=== PATIENT | female | born 1990 | race Caucasian/White ===

== ENCOUNTER 2018-10-12 21:17 | Emergency (ER) | payer SELFPAY ==
[~2018-10-12] VITALS: Ht 170.2 cm; Wt 104.3 kg
[2018-10-12 21:58] VITALS: BP 179/95
--- NOTE | 2018-10-12 23:13 | PHYS DOC ---
Past Medical History Past Medical History: Anxiety, Depression Additional Past Medical Histor: MURMUR (DENISHA MCNULTY RETAIL CUSTOMER SERVICE REPRESENTATIVE) Past Surgical History: Other Additional Past Surgical Histo: TOOTH EXTRACTION (DENISHA MCNULTY RETAIL CUSTOMER SERVICE REPRESENTATIVE) Additional Information: PT STATES SHE VAPES Alcohol Use: None Drug Use: None (DENISHA MCNULTY RETAIL CUSTOMER SERVICE REPRESENTATIVE) Adult General Chief Complaint Chief Complaint: SORE THROAT HPI HPI Patient is a 27 year old female who presents with sore throat for the last 4 days. Patient denies fever. Patient states it's hard to eat solid food because his her tonsils are so swollen. Patient states she has a history of strep since she was a small child but they have never taken her tonsils out. Patient rates her throat pain an 8 out of 10. (DENISHA MCNULTY RETAIL CUSTOMER SERVICE REPRESENTATIVE) Review of Systems Review of Systems Constitutional: Denies fever or chills [] HENT: Denies nasal congestion or sore throat. Throat pain. [] Respiratory: Denies cough or shortness of breath [] Neurologic: Denies headache, focal weakness or sensory changes [] All other systems were reviewed and found to be within normal limits, except as documented in this note. (DENISHA MCNULTY RETAIL CUSTOMER SERVICE REPRESENTATIVE) Allergies Allergies Allergies Coded Allergies Type Severity Reaction Last Updated Verified No Known Drug Allergies 10/12/18 No (CARMITA VINCENT DO) Physical Exam Physical Exam Constitutional: Well developed, well nourished, no acute distress, non-toxic appearance. [] HENT: Normocephalic, atraumatic, bilateral external ears normal, oropharynx moist, no oral exudates, nose normal. Throat red. Tonsils 2+ swelling. No exudates.[] Eyes: PERRLA, EOMI, conjunctiva normal, no discharge. [] Neck: Normal range of motion, no tenderness, supple, no stridor. [] Cardiovascular:Heart rate regular rhythm, no murmur [] Lungs & Thorax: Bilateral breath sounds clear to auscultation [] Skin: Warm, dry, no erythema, no rash. [] Neurologic: Alert and oriented X 3, normal motor function, normal sensory function, no focal deficits noted. [] (DENISHA MCNULTY RETAIL CUSTOMER SERVICE REPRESENTATIVE) Current Patient Data Vital Signs Vital Signs Date Time Temp Pulse Resp B/P (MAP) Pulse Ox O2 Delivery O2 Flow Rate FiO2 10/12/18 21:58 98.2 101 16 179/95 (123) 98 Room Air 98.2 (CARMITA VINCENT DO) Lab Values Laboratory Tests Test 10/12/18 22:41 Group A Streptococcus Rapid Negative (NEGATIVE) Microbiology 10/12/18 Throat Culture - Final, Complete 10/12/18 - Final, Complete 10/12/18 - Final, Complete (CARMITA VINCENT DO) Lab Values Laboratory Tests Test 10/12/18 22:41 Group A Streptococcus Rapid Negative (NEGATIVE) Microbiology 10/12/18 Throat Culture - Preliminary, Resulted 10/12/18 - Preliminary, Resulted (DENISHA MCNULTY APRN) EKG EKG [] (DENISHA MCNULTY APRN) Radiology/Procedures Radiology/Procedures [] (DENISHA MCNULTY APRN) Course & Med Decision Making Course & Med Decision Making Patient is a 27 year old female who presents with sore throat for the last 4 days. Patient denies fever. Patient states it's hard to eat solid food because his her tonsils are so swollen. Patient states she has a history of strep since she was a small child but they have never taken her tonsils out. Patient rates her throat pain an 8 out of 10. Speaks in full clear sentences. Vital signs within normal limits. Patient has not taken any Tylenol or ibuprofen today. Patient denies any nausea, vomiting, abdominal pain, shortness of air, chest pain, dizziness, headache, nasal congestion, cough, numbness or tingling, ear pain. No lymph nodes are palpable. Her throat is nontender upon palpation of the neck. There is no swelling of the neck seen. Tympanic membranes are pearly white. Throat is reddened and tonsils are 2+ without exudates. Rapid strep is negative. Lungs are clear to auscultation all lobes. Alert and oriented. Walks with a gait. Patient is given a prescription for Medrol Dosepak prescription for Augmentin. If in 48 hours patient is not feeling better after being on the Medrol Dosepak she is to start taking Augmentin. Patient to follow-up with her primary care provider or return to the emergency room. I have consulted with Dr. Vincent in this patient. Dr. Vincent agrees to this care plan. (DENISHA MCNULTY APRN) Dragon Disclaimer Dragon Disclaimer This electronic medical record was generated, in whole or in part, using a voice recognition dictation system. (DENISHA MCNULTY APRN) Departure Departure Impression: Primary Impression: Acute tonsillitis Disposition: HOME, SELF-CARE Condition: STABLE Referrals: NO PCP (PCP) Patient Instructions: Tonsillitis Additional Instructions: Hold antibiotics for 48 hours. If symptoms worsen or for fever > 100.3 F after 48 hours then start antibiotics as prescribed. Follow up with primary care physician. Take medications as prescribed. Scripts Methylprednisolone (MEDROL) 4 Mg Tab.ds.pk 1 PKG PO UD, #1 PKG Prov: DENISHA MCNULTY APRN 10/12/18 Amoxicillin/Potassium Clav (AUGMENTIN 875-125 TABLET) 1 Each Tablet 1 TAB PO BID, #20 TAB Prov: DENISHA MCNULTY APRN 10/12/18 Attending Signature Attending Signature I have reviewed the PA/SENIOR IT ASSISTANT's note and plan of care. I was available for consultat ion as needed during the patient's visit in the emergency department. I agree with the clinical impression, plan, and disposition. (CARMITA VINCENT DO) Problem Qualifiers Primary Impression: Acute tonsillitis Pharyngitis/tonsillitis etiology: unspecified etiology Qualified Codes: J03.90 - Acute tonsillitis, unspecified DENISHA MCNULTY APRN Oct 12, 2018 23:13 CARMITA VINCENT DO Oct 12, 2018 23:19
[2018-10-12] MEDS ORDERED: METH4TAB2 PO (23:21)
[2018-10-12] MEDS ORDERED: AMOX1TAB61 PO (23:21)
== END 2018-10-12 23:43 | disposition home or self-care (01) ==
LOC: ER 21:17
DX: J03.90 Acute tonsillitis, unspecified (principal); F17.200 Nicotine dependence, unspecified, uncomplicated
CPT/HCPCS: 87070; 87880; 99283

== ENCOUNTER 2018-10-20 15:52 | Emergency (ER) | payer SELFPAY ==
[~2018-10-20] VITALS: Ht 170.2 cm; Wt 113.4 kg
[~2018-10-20 15:52] MED LIST: AMOX1TAB61 PO; METH4TAB2 PO
[2018-10-20] MEDS ORDERED: DEXAMETHASONE 4 MG TABLET PO STA (16:02)
--- NOTE | 2018-10-20 16:11 | PHYS DOC ---
Past Medical History Past Medical History: Anxiety, Depression Additional Past Medical Histor: MURMUR Past Surgical History: Other Additional Past Surgical Histo: TOOTH EXTRACTION Alcohol Use: None Drug Use: None Adult General Chief Complaint Chief Complaint: DENTAL PROBLEM HPI HPI Patient is a 27 year old female that presents with throat pain that has progressed since she was seen here on October 12. The patient was originally given steroids and told to take Augmentin if it did not get better. The patient states she started taking Augmentin on Tuesday and states that she's been developing what seems like tooth pain in the right upper section of her mouth. She states her throat is been progressively getting worse, and that her voice seems muffled. He is also unable to fully open her mouth. Rates her pain as 5 out of 10 in severity and sharp. Review of Systems Review of Systems Constitutional: Denies fever or chills [] Eyes: Denies change in visual acuity, redness, or eye pain [] HENT: Reports sore throat, and right sided facial swelling. Also report ache ne ar upper right side of mouth. Respiratory: Denies cough or shortness of breath [] Cardiovascular: No additional information not addressed in HPI [] GI: Denies abdominal pain, nausea, vomiting, bloody stools or diarrhea [] : Denies dysuria or hematuria [] Musculoskeletal: Denies back pain or joint pain [] Integument: Denies rash or skin lesions [] Neurologic: Denies headache, focal weakness or sensory changes [] Endocrine: Denies polyuria or polydipsia [] Complete systems were reviewed and found to be within normal limits, except as documented in this note. Current Medications Current Medications Current Medications Medications (Trade) Dose Ordered Sig/Chelly Start Time Stop Time Status Last Admin Dose Admin Clindamycin Phosphate 50 ml @ 100 mls/hr 1X ONCE 10/20/18 18:00 10/20/18 18:29 DC 10/20/18 18:01 100 MLS/HR Dexamethasone (Decadron) 10 mg 1X STAT 10/20/18 16:02 10/20/18 16:09 DC 10/20/18 16:45 10 MG Info (CONTRAST GIVEN -- Rx MONITORING) 1 each PRN DAILY PRN 10/20/18 17:15 10/22/18 17:14 Iohexol (Omnipaque 300 Mg/ml) 70 ml 1X ONCE 10/20/18 17:15 10/20/18 17:16 DC 10/20/18 17:16 70 ML Ketorolac Tromethamine (Toradol 15mg Vial) 10 mg 1X STAT 10/20/18 17:50 10/20/18 17:53 DC 10/20/18 18:01 10 MG Morphine Sulfate (Morphine Sulfate) 2 mg 1X ONCE 10/20/18 16:15 10/20/18 16:16 DC 10/20/18 16:45 2 MG Sodium Chloride 1,000 ml @ 1,000 mls/hr 1X ONCE 10/20/18 16:15 10/20/18 17:14 DC 10/20/18 16:45 1,000 MLS/HR Allergies Allergies Allergies Coded Allergies Type Severity Reaction Last Updated Verified No Known Drug Allergies 10/12/18 No Physical Exam Physical Exam Constitutional: Well developed, well nourished, no acute distress, non-toxic appearance. [] HENT: Normocephalic, atraumatic, bilateral external ears normal, oropharynx moist, right tonsils is 3+/4, unable to completely visualize, cavity in tooth # 2 nose normal. [] Eyes: PERRLA, EOMI, conjunctiva normal, no discharge. [] Neck: Normal range of motion, no tenderness, supple, no stridor. [] Cardiovascular:Heart rate regular rhythm, no murmur [] Lungs & Thorax: Bilateral breath sounds clear to auscultation [] Abdomen: Bowel sounds normal, soft, no tenderness, no masses, no pulsatile masses. [] Skin: Warm, dry, no erythema, no rash. [] Back: No tenderness, no CVA tenderness. [] Extremities: No tenderness, no cyanosis, no clubbing, ROM intact, no edema. [] Neurologic: Alert and oriented X 3, normal motor function, normal sensory function, no focal deficits noted. [] Psychologic: Affect normal, judgement normal, mood normal. [] Current Patient Data Vital Signs Vital Signs Date Time Temp Pulse Resp B/P (MAP) Pulse Ox O2 Delivery O2 Flow Rate FiO2 10/20/18 16:45 Room Air 10/20/18 16:09 99.1 99 16 186/91 (122) 96 99.1 Lab Values Laboratory Tests Test 10/20/18 16:37 10/20/18 16:42 POC Urine HCG, Qualitative Hcg negative (Negative) White Blood Count 16.2 x10^3/uL (4.0-11.0) H Red Blood Count 4.80 x10^6/uL (3.50-5.40) Hemoglobin 13.6 g/dL (12.0-15.5) Hematocrit 40.9 % (36.0-47.0) Mean Corpuscular Volume 85 fL (79-100) Mean Corpuscular Hemoglobin 28 pg (25-35) Mean Corpuscular Hemoglobin Concent 33 g/dL (31-37) Red Cell Distribution Width 13.0 % (11.5-14.5) Platelet Count 426 x10^3/uL (140-400) H Neutrophils (%) (Auto) 73 % (31-73) Lymphocytes (%) (Auto) 19 % (24-48) L Monocytes (%) (Auto) 6 % (0-9) Eosinophils (%) (Auto) 2 % (0-3) Basophils (%) (Auto) 1 % (0-3) Neutrophils # (Auto) 11.8 x10^3/uL (1.8-7.7) H Lymphocytes # (Auto) 3.0 x10^3/uL (1.0-4.8) Monocytes # (Auto) 1.0 x10^3/uL (0.0-1.1) Eosinophils # (Auto) 0.3 x10^3/uL (0.0-0.7) Basophils # (Auto) 0.1 x10^3/uL (0.0-0.2) Sodium Level 142 mmol/L (136-145) Potassium Level 3.4 mmol/L (3.5-5.1) L Chloride Level 102 mmol/L (98-107) Carbon Dioxide Level 28 mmol/L (21-32) Anion Gap 12 (6-14) Blood Urea Nitrogen 9 mg/dL (7-20) Creatinine 0.9 mg/dL (0.6-1.0) Estimated GFR (Cockcroft-Gault) 74.0 BUN/Creatinine Ratio 10 (6-20) Glucose Level 98 mg/dL (70-99) Calcium Level 9.4 mg/dL (8.5-10.1) Total Bilirubin 0.8 mg/dL (0.2-1.0) Aspartate Amino Transferase (AST) 7 U/L (15-37) L Alanine Aminotransferase (ALT) 13 U/L (14-59) L Alkaline Phosphatase 82 U/L (46-116) Total Protein 8.7 g/dL (6.4-8.2) H Albumin 3.6 g/dL (3.4-5.0) Albumin/Globulin Ratio 0.7 (1.0-1.7) L Laboratory Tests 10/20/18 16:42 Laboratory Tests 10/20/18 16:42 EKG EKG [] Radiology/Procedures Radiology/Procedures [][facility] [address] [place] [address] IMAGING REPORT Signed PATIENT: FREDY JOHNSON AACCOUNT: [id number] : 1990 LOCATION: ER AGE: 27 SEX: F EXAM STATUS: REG ER ORD. PHYSICIAN: CARMITA GONZALEZ APRN REASON: pain when swallowing, difficulty fully opening mouth; r/o peritonsiller abs PROCEDURE: CT SOFT TISSUE NECK W/CONTRAST Exam: CT neck with contrast INDICATION: Pain when swallowing TECHNIQUE: Sequential axial images through the neck obtained following the administration of 70 mL of Omni 300 IV contrast. Sagittal and coronal reformatted images were reconstructed from the axial data and reviewed. Comparisons: None FINDINGS: Visualized intracranial structures are unremarkable. The coastal thickening within the left maxillary sinus. Dental caries involving right maxillary molar. Cervical vasculature is patent. There is asymmetric enlargement of the right palatine tonsil. There is a 1.0 x 0.6 cm focal fluid collection within the right palatine tonsil. There is edema within the adjacent parapharyngeal fat. Otherwise, the oropharynx, hypopharynx and larynx are normal. Thyroid and salivary glands are within normal limits. Several enlarged right level 2A and 2B lymph nodes are noted. The lung apices are clear. Visualized osseous structures are unremarkable. IMPRESSION: 1. Enlarged right pontine tonsil with a 1.0 x 0.6 cm tonsillar abscess. There is adjacent inflammatory changes within the parapharyngeal fat with several enlarged adjacent cervical lymph nodes, likely reactive. 2. Sinus and odontogenic disease as described above. Exposure: One or more of the following in the visualized dose reduction techniques were utilized for this examination: 1. Automated exposure control 2. Adjustment of the MA and/or KV according to patient size 3. Use of iterative of reconstructive technique Electronically signed by: John Flower MD (10/20/2018 5:35 PM) [facility] DICTATED and SIGNED BY: JOHN FLOWER MD DATE: 10/20/18 8561 Course & Med Decision Making Course & Med Decision Making Pertinent Labs and Imaging studies reviewed. (See chart for details) Patient has been on Augmentin and her pain is getting worse, muffled voice, and unable to open mouth. Will get CT scan to evaluate for peritonsillar abscess. CT scan shows peritonsillar abscess. Discussed case with transfer center to start transfer to (1800). Accepting doctor for ER to ER transfer is Dr. Carlos Estrella. Anetteon Disclaimer Benjamin Disclaimer This electronic medical record was generated, in whole or in part, using a voice recognition dictation system. Departure Departure Impression: Primary Impression: Peritonsillar abscess Disposition: 05 TRANSFER OTHER () Condition: STABLE Referrals: NO PCP (PCP) CARMITA GONZALEZ APRN Oct 20, 2018 16:11
[2018-10-20] MEDS ORDERED: IV NORMAL SALINE 1000ML BAG 1,000 ML IV ONE (16:15)
[2018-10-20] MEDS ORDERED: MORPHINE SULFATE 2 MG/ML VIAL. IV ONE (16:15)
[2018-10-20 16:51] LABS: BASO # 0.1 x10^3/uL (0.0-0.2); BASO % 1 % (0-3); EOS # 0.3 x10^3/uL (0.0-0.7); EOS % 2 % (0-3); HEMATOCRIT 40.9 % (36.0-47.0); HEMOGLOBIN 13.6 g/dL (12.0-15.5); LYMPH % 19 % (24-48); MEAN CORPUSCULAR HEMOGLOBIN 28 pg (25-35); MEAN CORPUSCULAR HGB CONC 33 g/dL (31-37); MEAN CORPUSCULAR VOLUME 85 fL (79-100); MONO % 6 % (0-9); NEUT # 11.8 x10^3/uL (1.8-7.7); NEUT % 73 % (31-73); PLATELET COUNT 426 x10^3/uL (140-400); WHITE BLOOD COUNT 16.2 x10^3/uL (4.0-11.0)
[2018-10-20 17:03] LABS: CALCIUM 9.4 mg/dL (8.5-10.1); CREATININE 0.9 mg/dL (0.6-1.0); POTASSIUM 3.4 mmol/L (3.5-5.1)
[2018-10-20 17:09] LABS: ALBUMIN 3.6 g/dL (3.4-5.0); ALBUMIN/GLOBULIN RATIO 0.7 (1.0-1.7); TOTAL BILIRUBIN 0.8 mg/dL (0.2-1.0); TOTAL PROTEIN 8.7 g/dL (6.4-8.2)
[2018-10-20] MEDS ORDERED: IOHEXOL 300 MG/ML 100ML VIAL. IV ONE (17:15)
[2018-10-20] MEDS ORDERED: CONTRAST GIVEN. MC PRN (17:15)
--- NOTE | 2018-10-20 17:38 | RAD ---
Exam: CT neck with contrast INDICATION: Pain when swallowing TECHNIQUE: Sequential axial images through the neck obtained following the administration of 70 mL of Omni 300 IV contrast. Sagittal and coronal reformatted images were reconstructed from the axial data and reviewed. Comparisons: None FINDINGS: Visualized intracranial structures are unremarkable. The coastal thickening within the left maxillary sinus. Dental caries involving right maxillary molar. Cervical vasculature is patent. There is asymmetric enlargement of the right palatine tonsil. There is a 1.0 x 0.6 cm focal fluid collection within the right palatine tonsil. There is edema within the adjacent parapharyngeal fat. Otherwise, the oropharynx, hypopharynx and larynx are normal. Thyroid and salivary glands are within normal limits. Several enlarged right level 2A and 2B lymph nodes are noted. The lung apices are clear. Visualized osseous structures are unremarkable. IMPRESSION: 1. Enlarged right pontine tonsil with a 1.0 x 0.6 cm tonsillar abscess. There is adjacent inflammatory changes within the parapharyngeal fat with several enlarged adjacent cervical lymph nodes, likely reactive. 2. Sinus and odontogenic disease as described above. Exposure: One or more of the following in the visualized dose reduction techniques were utilized for this examination: 1. Automated exposure control 2. Adjustment of the MA and/or KV according to patient size 3. Use of iterative of reconstructive technique Electronically signed by: John Perkins MD (10/20/2018 5:35 PM) [facility]
[2018-10-20] MEDS ORDERED: KETOROLAC 15 MG/ML VIAL. IV STA (17:50)
[2018-10-20] MEDS ORDERED: CLINDAMYCIN 600MG PREMIX 50 ML IV ONE (18:00)
[2018-10-20 18:28] VITALS: BP 162/81
== END 2018-10-20 19:14 | disposition short-term general hospital (02) ==
LOC: ER 15:52
DX: J36 Peritonsillar abscess (principal); F41.9 Anxiety disorder, unspecified; F32.9 Major depressive disorder, single episode, unspecified
CPT/HCPCS: 36415; 70491; 80053; 81025; 85025; 86140; 96365; 96375; 99285; J1885; J2270; J3490; J7030; J8540; Q9967